=== PATIENT | female | born 1950 | race Caucasian/White ===

== ENCOUNTER 2017-03-04 07:30 | Inpatient (IN) | payer BC, MEDICARE ==
--- NOTE | 2017-02-24 15:38 | HP ---
HISTORY AND PHYSICAL: DATE OF ADMISSION/SURGERY: 03/04/17 DATE OF OFFICE VISIT: 02/19/17 SURGEON: Dr. Paola Ni. PROCEDURE: Right total knee arthroplasty. CHIEF COMPLAINT: Right knee pain. HISTORY OF PRESENT ILLNESS: Ms. Alcala is a 66-year-old female with complaints of right knee pain secondary to advanced osteoarthritis. She has failed conservative management and has elected to proceed with a right total knee arthroplasty, which is scheduled for 03/04/[address] Ni. PAST MEDICAL HISTORY: Multiple sclerosis, Frank disease, high cholesterol, melanoma. PAST SURGICAL HISTORY: Corneal transplant, cataract removal, melanoma removal, bilateral elbow surgery, open left shoulder surgery, and ORIF of the right foot. CURRENT MEDICATIONS: 1. Baby aspirin. 2. Vitamin D. 3. Metamucil. 4. Tramadol. 5. Glatopa. 6. Voltaren Gel. 7. Dronabinol. 8. Lotemax. 9. Advil. 10. Iron. 11. Turmeric. ALLERGIES: To PENICILLIN, SULFA, BETADINE, LEVAQUIN. FAMILY HISTORY: Hypertension, celiac disease. SOCIAL HISTORY: She is a 66-year-old female. She lives with her spouse. She is a part-time employee at [employer]. She does not smoke or use drugs. Uses occasional alcohol. REVIEW OF SYSTEMS: Reviewed the complete 14-point review of systems with the patient, it was all negative. PHYSICAL EXAMINATION GENERAL: She is well-developed, well-nourished. She is in no acute distress. VITAL SIGNS: She stands 5 feet 2 inches tall, weighs 156 pounds, her blood pressure 122/84, heart rate 56. HEENT: Normocephalic, atraumatic. NECK: Supple. No palpable lymph nodes. Trachea is midline. PULMONARY: The lungs are clear to auscultation bilaterally. CARDIO: Regular rate and rhythm. ABDOMEN: Soft and nontender, nondistended. MUSCULOSKELETAL: Right lower extremity, the skin is intact. She has some tenderness over the medial and lateral joint line. There is moderate joint effusion. 2+ dorsalis pedis pulses. Her lower extremity muscle group strengths are intact at 5/5. She has intact sensation. She walks with an antalgic-type gait favoring her right leg. ASSESSMENT AND PLAN: Ms. Alcala is a 66-year-old female with complaints of right knee pain secondary to osteoarthritis. She has failed conservative management and has elected to proceed with a right total knee arthroplasty which is scheduled for 03/04/[address] Ni discussed the risks and the benefits of the surgery at today's visit and all of her questions were answered. Colace, Coumadin, and Percocet were sent to her pharmacy today for postoperative pain control and DVT prophylaxis. She will see Dr. Ni back 10 to 14 days after the surgery. VENKATA NEWBERRY [id number]/[facility] #: [id number] MTDBairon
[~2017-03-04 07:30] MED LIST: Buffered Lidocaine 1% SYRIN* 3 ML/SYR SYRINGE INTRADERM ONE; Famotidine IV* 10 MG/ML 2 ML (20 mg) IV ONE; Gabapentin CAP(*) 300 MG PO ONE
[2017-03-04] MEDS ORDERED: Famotidine IV* 10 MG/ML 2 ML (20 mg) ONE (08:57)
[2017-03-04] MEDS ORDERED: Gabapentin CAP(*) 300 MG ONE (08:58)
[2017-03-04] MEDS ORDERED: Clindamycin 900 MG IVPREMIX(* 900 MG/50 ML SDV IV ONE (08:58)
[2017-03-04] MEDS ORDERED: Bupivacaine 0.5% W/EPI SDV* 30 ML VIAL ONE (09:22)
[2017-03-04] MEDS ORDERED: fentaNYL* 50 MCG/ML 2 ML VIAL (100 MCG VIAL) ONE ×2 (10:14→11:49)
[2017-03-04] MEDS ORDERED: Midazolam* 1 MG/ML 5 ML VIAL (5 MG) ONE (10:14)
[2017-03-04] MEDS ORDERED: Propofol* 10 MG/ML 20 ML BTL IV PUSH ONE (10:15)
[2017-03-04] MEDS ORDERED: Ketorolac INJ* 30 MG/ML 1 ML VIAL ONE (10:15)
[2017-03-04] MEDS ORDERED: Dexamethasone IV* 4 MG/ML 1 ML (4 MG) ONE (10:15)
[2017-03-04] MEDS ORDERED: Ondansetron INJ* 2 MG/ML VIAL ONE (10:15)
[2017-03-04] MEDS ORDERED: Lidocaine 2% PF * 5 ML VIAL ONE (10:15)
[2017-03-04] MEDS ORDERED: ROPIVACAINE 5 MG/ML 30 ML BTL (0.5%) ONE (10:20)
[2017-03-04] MEDS ORDERED: DiMENhydriNATE IV* 50 MG/ML VIAL IV PUSH PRN (11:24)
[2017-03-04] MEDS ORDERED: HYDROmorphone* 1 MG/ML 1 ML SYR IV PRN (11:24)
[2017-03-04] MEDS ORDERED: Acetaminophen IV 1GM/100ML * 100 ML IVPB ONE (11:24)
[2017-03-04] MEDS ORDERED: Gabapentin CAP(*) 100 MG PO ONE (11:26)
[2017-03-04] MEDS ORDERED: Midazolam* 1 MG/ML 2 ML VIAL (2 MG) ONE (11:35)
[2017-03-04] MEDS ORDERED: KETAMINE HCL* 50 MG/ML 10 ML VIAL ONE (11:36)
[2017-03-04] MEDS ORDERED: HYDROmorphone* 1 MG/ML 1 ML SYR ONE ×2 (13:12→14:29)
[2017-03-04] MEDS ORDERED: Gabapentin CAP(*) 100 MG ONE (13:54)
[2017-03-04] MEDS ORDERED: Acetaminophen IV 1GM/100ML * 100 ML ONE (13:55)
[2017-03-04] MEDS ORDERED: Ondansetron TAB* 4 MG PO PRN (14:03)
[2017-03-04] MEDS ORDERED: oxyCODONE/Acetamin 5/325 MG* TAB PO PRN (14:03)
[2017-03-04] MEDS ORDERED: Acetaminophen TAB* 325 MG PO PRN (14:03)
[2017-03-04] MEDS ORDERED: Bisacodyl SUPP* 10 MG SUPP PR PRN (14:03)
[2017-03-04] MEDS ORDERED: LACTULOSE* 30 ML UDC PO PRN (14:03)
[2017-03-04] MEDS ORDERED: Polyethylene Glycol 3350* 17 GM PACKET PO PRN (14:03)
[2017-03-04] MEDS ORDERED: diPHENhydraMINE IV* 50 MG/ML 1 ml VIAL (BENADRYL) IV PRN (14:03)
[2017-03-04] MEDS ORDERED: oxyCODONE TAB* 5 MG TAB ONE (14:32)
[2017-03-04] MEDS: oxyCODONE TAB* 5 MG TAB PO PRN ×2 (14:34→14:35)
--- NOTE | 2017-03-04 14:55 | RAD ---
Indication: Right total knee replacement. 2 views of the right knee demonstrates right knee replacement in satisfactory position. No loosening is noted. IMPRESSION: Right knee replacement in satisfactory position.
[2017-03-04] MEDS ORDERED: Warfarin TAB(*) 6 MG PO ONE (17:00)
[2017-03-04] MEDS ORDERED: Clindamycin 600 MG IVPREMIX(* 600 MG/50 ML SDV IV SCH (17:00)
[2017-03-04] MEDS: Omeprazole CAP* 20 MG PO SCH (17:17)
[2017-03-04] MEDS: Morphine INJ* 2 MG/ML 1 ML SYRINGE IV PRN ×3 (17:17→23:49)
[2017-03-04] MEDS: oxyCODONE/Acetamin 5/325 MG* TAB PO PRN ×2 (18:37→21:51)
[2017-03-04] MEDS: Clindamycin 600 MG IVPREMIX(* 600 MG/50 ML SDV IV SCH (20:16)
[2017-03-04] MEDS: Dronabinol CAP* 2.5 MG PO PRN (21:50)
[2017-03-04] MEDS: Docusate CAP* 100 MG PO SCH (21:51)
[2017-03-04] MEDS: Magnesium Hydroxide LIQ* 30 ML UDC PO PRN (21:51)
[2017-03-04] MEDS: GLATIRAMER 20 MG/ML SUBCUT SCH (21:54)
--- NOTE | 2017-03-05 02:46 | OP ---
DATE OF OPERATION: 03/04/17 - ROOM #341 DATE OF : 52 SURGEON: Paola Ni MD HELP DESK REP: VENKATA Bowens. This senior sales assistant was crucial and used throughout the procedure for prepping the leg, manipulation of the leg, retraction, and wound closure. ANESTHESIOLOGIST: Dr. Huffman. ANESTHESIA: General with adductor nerve block. PRE-OP DIAGNOSIS: Severe degenerative osteoarthritis of the right knee joint. POST-OP DIAGNOSIS: Severe degenerative osteoarthritis of the right knee joint. OPERATIVE PROCEDURE: Right total knee arthroplasty. COMPLICATIONS: None. EBL: 200 cc. TOURNIQUET TIME: 42 minutes. SPECIMEN: Bone and cartilage from the right knee joint sent to pathology. HARDWARE: This is a cemented [employer] total knee hardware. Two packages of Simplex bone cement were used. For the femur, a size 5 right narrow Oxinium femoral component, which was posterior stabilized. For the tibia , size 3 tibial base plate. For the insert, a 9 mm posterior stabilized articular insert size 3-4. For the patella, a 29 mm 7.5 thickness 3-peg all- poly patella. BRIEF HISTORY/INDICATIONS: Ms. Alcala is a 66-year-old female with years of increasingly severe right knee pain. She failed conservative treatment with The anti-inflammatories, pain medications, intraarticular injections and physical therapy. She elected to undergo right total knee arthroplasty due to continued pain and decreased quality of life. Informed consent was obtained from the patient. She understood the risks of the surgery included, but were not limited to bleeding, infection, damage to nearby structures, continued pain , need for further surgery, intraoperative fracture, nerve palsy, hardware failure or loosening, knee stiffness, loss of motion, stroke, heart attack, blood clot and . She wished to proceed. INTRAOPERATIVE FINDINGS: Intraoperatively, the patient was noted to have complete loss of cartilage in the medial and patellofemoral compartments. She also had some lateral femoral condylar hypoplasia. DESCRIPTION OF PROCEDURE: Ms. Alcala was identified in the preanesthesia unit. Her right lower extremity was marked as the correct operative side. Informed consent was signed and placed in the chart. The patient was taken to the operating room and placed under general anesthesia with an adductor nerve block. A Briggs catheter was placed. A thigh high tourniquet was placed. Right lower extremity was prepped and draped in the usual sterile fashion. Preop time-out was made to currently identify the patient's side and site. Appropriate perioperative antibiotics were given within 1 hour of incision. Tourniquet was inflated until tourniquet time for this procedure was 42 minutes. A 12 cm midline incision was made with a 10 blade. This was carried down to the extensor mechanism. A new 10 blade was used to make a standard medial peripatellar arthrotomy. The patella was subluxed laterally. Electrocautery was used to subperiosteally elevate soft tissue off the superomedial tibia to the mid sagittal plane. The knee was flexed up. The anterior horn of the lateral meniscus and ACL were sharply released. The drill was used to enter the distal femur. Intra-medullary distal femoral cutting guide was pinned into proper position. Oscillating saw was used to make a distal femoral cut. Next, an external guide was pinned on the distal femur. The distal femur was size to a size 5. A size 5 multi-cutting jig was pinned on the distal femur. Oscillating saw was used to make the appropriate 4 chamfer cuts. Next, the PCL was completely released. The tibia was subluxed anteriorly. Extramedullary tibial cutting guide was pinned on the proximal tibia. Oscillating saw was used to make the proximal tibial cut perpendicular to the mechanical axis of the tibia. The bone was carefully removed. The knee was brought into full extension. The spacer block had good fit. Medial and lateral ligaments were well balanced. Flexion and extension gaps were well balanced. The knee was flexed up. Lamina technical instructor course developer was placed both medially and laterally. Any remaining meniscus was carefully removed with electrocautery. Any posterior osteophytes were carefully removed. Tibial tray and drop nnamdi were placed to once again confirm satisfactory proximal tibial cut. This was confirmed. A size 5 narrow right femoral component trial was impacted onto the distal femur. This had good fit. The box for the posterior stabilized implant was prepared using a reamer and box cut osteotome. Size 3 tibial trial with a 9 mm insert trial was placed. The knee was taken through a range of motion. The knee had full extension to a 130 degrees of flexion with good patellofemoral tracking. The patella was everted. 7 mm of patellar bone and cartilage was carefully removed from the patella. Patella was sized to a size 29. The 3 peg holes were drilled through the size 29 guide. A 29 trial patella, which was 7.5 thickness, was chosen. This was placed and the knee was taken through a range of motion. There was good patellofemoral tracking. All trials were carefully removed. The tibia was subluxed anteriorly. Tibia was sized to a size 3 and prepared with a size 3 keel punch. All bony cut surfaces were copiously irrigated with sterile saline and dried. Final implants were cemented into place starting with the tibia followed by femur and last the patella. A 9 mm insert trial was placed while the knee was brought out into full extension. Tourniquet was turned down at 42 minutes. The knee was copiously irrigated with sterile saline. Once the cement was fully cured, the insert trial was removed. Any excess cement was carefully removed from around the implants. The electrocautery was used to obtain meticulous hemostasis. Final implants chosen was a 9 mm posterior stabilized articular insert. This was locked into position on the tibial tray without difficulty. Stability of the insert was checked and rechecked and noted to be stable. The knee was copiously irrigated with sterile saline once again. The extensor mechanism was closed over a medium Hemovac drain using interrupted #1 Vicryls. The rest of the incision was closed in a layered fashion using 0 and 2-0 Vicryls. Skin was closed using running 3-0 nylon suture. The incision was covered with Xeroform, 4x4s and Webril. Sterile Darian wrap and cold pack were placed over this. The patient's anesthesia was reversed without difficulty. She was taken to the PACU in stable condition. Intended weightbearing will be weightbearing as tolerated. Intended DVT prophylaxis will be Coumadin with a Lovenox bridge. [id number]/[facility] #: [id number] [facility]ENTERBairon
[2017-03-05] MEDS: oxyCODONE/Acetamin 5/325 MG* TAB PO PRN ×6 (03:39→21:24)
[2017-03-05] MEDS: Morphine INJ* 2 MG/ML 1 ML SYRINGE IV PRN ×4 (03:41→16:17)
[2017-03-05] MEDS: Clindamycin 600 MG IVPREMIX(* 600 MG/50 ML SDV IV SCH ×3 (03:47→19:59)
[2017-03-05 06:59] LABS: Hematocrit 32 % (35-47); Hemoglobin 10.8 g/dl (12.0-16.0)
[2017-03-05 07:14] LABS: BUN/Creatinine Ratio 14.9 (8-20); Calcium 8.3 mg/dL (8.6-10.3); EGFR African American 113.6 (>60); EGFR Non-African American 88.3 (>60)
[2017-03-05] MEDS: Docusate CAP* 100 MG PO SCH ×2 (07:59→21:25)
[2017-03-05] MEDS: LOTEPREDNOL 0.5% BOTH EYES SCH (08:00)
[2017-03-05] MEDS: Dronabinol CAP* 2.5 MG PO PRN (11:31)
[2017-03-05] MEDS ORDERED: Enoxaparin(*) 30 MG/0.3 ML SYR SUBCUT SCH (12:00)
--- NOTE | 2017-03-05 15:29 | PN ---
Progress Note - Progress Note SOAP: Subjective: Pt is doing well. She is having some difficulty with pain control, needing frequent IV morphine. Otherwise doing well. Denies CP, SOB, calf pain, N/T or F /C. VSS Objective: PE: 66 y/o F NAD sitting in bed comfortably RLE- dressing c/d/i. +PF/DF ankle, calf soft nt, NVI Vital Signs Temp Pulse Resp BP Pulse Ox 97.9 F 46 18 110/62 100 03/05/17 12:14 03/05/17 12:14 03/05/17 14:53 03/05/17 12:14 03/05/17 12:14 Laboratory Results - last 24 hr 03/05/17 03/05/17 03/05/17 06:04 06:04 06:04 Hgb 10.8 L Hct 32 L INR (Anticoag Therapy) 0.95 Sodium 136 Potassium 4.0 Chloride 103 Carbon Dioxide 29 Anion Gap 4 BUN 10 Creatinine 0.67 Est GFR ( Amer) 113.6 Est GFR (Non-Af Amer) 88.3 BUN/Creatinine Ratio 14.9 Glucose 106 H Calcium 8.3 L Assessment: POD #1 S/P right TKA Plan: WBAT RLE- cont PT/OT coumadin 8 mg tonight Oxycontin 10 mg bid to wean off of IV morphine Plan to DC home with VNS in 1-2 days
[2017-03-05] MEDS ORDERED: Warfarin TAB(*) 4 MG PO SCH (17:00)
[2017-03-05] MEDS: Omeprazole CAP* 20 MG PO SCH (17:28)
[2017-03-05] MEDS: oxyCODONE SR TAB(*) 10 MG TAB.SR PO SCH (21:25)
[2017-03-05] MEDS: GLATIRAMER 20 MG/ML SUBCUT SCH (21:26)
[2017-03-06] MEDS: oxyCODONE TAB* 5 MG TAB PO PRN ×3 (00:29→23:21)
[2017-03-06] MEDS: Morphine INJ* 2 MG/ML 1 ML SYRINGE IV PRN (03:59)
[2017-03-06] MEDS: oxyCODONE/Acetamin 5/325 MG* TAB PO PRN ×2 (04:01→08:21)
[2017-03-06 06:20] LABS: Hematocrit 32 % (35-47); Hemoglobin 10.7 g/dl (12.0-16.0)
[2017-03-06] MEDS: Magnesium Hydroxide LIQ* 30 ML UDC PO PRN ×2 (08:19→20:13)
[2017-03-06] MEDS: oxyCODONE SR TAB(*) 10 MG TAB.SR PO SCH (08:19)
[2017-03-06] MEDS: Docusate CAP* 100 MG PO SCH ×2 (08:19→20:13)
[2017-03-06] MEDS: LOTEPREDNOL 0.5% BOTH EYES SCH (08:24)
[2017-03-06] MEDS ORDERED: Ondansetron INJ* 2 MG/ML VIAL ONE (09:29)
[2017-03-06] MEDS ORDERED: Ondansetron INJ* 2 MG/ML VIAL IV PRN (09:34)
--- NOTE | 2017-03-06 09:46 | PN ---
Progress Note - Progress Note SOAP: Subjective: Pt continues to have issues with pain control and needed IV morphine overnight. She also complains of dizziness and nausea. She denies CP, SOB, N/T or F/C. BP and H&H stable Objective: PE: 66 y/o F NAD, A&O x3 RLE- dressing changed, inc c/d/i, calf soft nontender, + PF/DF at ankle, NVI Vital Signs Temp Pulse Resp BP Pulse Ox 98.0 F 56 16 122/55 96 03/06/17 07:26 03/06/17 07:26 03/06/17 08:21 03/06/17 07:26 03/06/17 07:26 Laboratory Results - last 24 hr 03/06/17 03/06/17 05:56 05:56 Hgb 10.7 L Hct 32 L INR (Anticoag Therapy) 1.70 H Assessment: POD #2 S/P right TKA Plan: WBAT RLE- cont PT/OT coumadin 8 mg tonight Increase Oxycontin 20 mg bid to wean off IV morphine IV zofran prn nausea Plan to DC home tomorrow with VNS
[2017-03-06] MEDS ORDERED: oxyCODONE SR TAB(*) 10 MG TAB.SR PO SCH (09:52)
[2017-03-06] MEDS: Dronabinol CAP* 2.5 MG PO PRN ×2 (13:08→20:13)
[2017-03-06] MEDS: Omeprazole CAP* 20 MG PO SCH (16:54)
[2017-03-06] MEDS ORDERED: Warfarin TAB(*) 4 MG PO ONE (17:00)
[2017-03-06] MEDS: GLATIRAMER 20 MG/ML SUBCUT SCH (20:14)
[2017-03-06] MEDS ORDERED: diPHENhydraMINE PO* 25 MG PO PRN (20:47)
[2017-03-06] MEDS: oxyCODONE SR TAB(*) 20 MG TAB.SR PO SCH (22:09)
[2017-03-07] MEDS: oxyCODONE TAB* 5 MG TAB PO PRN (03:55)
[2017-03-07 05:33] LABS: Hematocrit 33 % (35-47)
[2017-03-07 08:06] VITALS: BP 123/61
--- NOTE | 2017-03-07 10:03 | PN ---
Progress Note - Progress Note SOAP: Subjective: Pt is doing well. She had difficulty with pain control overnight. Her pain is better controlled with oxycontin. She denies CP, SOB, N/T, lightheadedness or fever/chills. VSS overnight Objective: PE- 66 y/o F NAD, A&O x 3 RLE- dressing changed, inc c/d/i no signs of infection, +DF/PF at ankle, calf soft nontender, NVI Vital Signs Temp Pulse Resp BP Pulse Ox 97.9 F 67 16 123/61 96 03/07/17 07:24 03/07/17 07:24 03/07/17 07:24 03/07/17 07:24 03/07/17 07:24 Laboratory Results - last 24 hr 03/07/17 03/07/17 05:17 05:18 Hgb 11.0 L Hct 33 L INR (Anticoag Therapy) 2.90 H Assessment: POD #3 S/P right TKA Plan: Home with VNS today WBAT RLE- cont PT cont coumadin and colace Oxycontin 20 mg bid and percocet for pain F/U 10-14 days post op
[2017-03-07] MEDS: Docusate CAP* 100 MG PO SCH (10:16)
[2017-03-07] MEDS: oxyCODONE/Acetamin 5/325 MG* TAB PO PRN (10:16)
[2017-03-07] MEDS: oxyCODONE SR TAB(*) 20 MG TAB.SR PO SCH (10:16)
[2017-03-07] MEDS: LOTEPREDNOL 0.5% BOTH EYES SCH (10:17)
--- NOTE | 2017-03-07 16:56 | DS ---
DISCHARGE SUMMARY: DATE OF ADMISSION: 03/04/17 DATE OF DISCHARGE: 03/07/17 PROVIDER: Dr. Paola Ni. (DICTATED BY VENKATA MAO) ADMISSION DIAGNOSIS: Status post right total knee arthroplasty due to severe right knee osteoarthritis. SECONDARY DIAGNOSES: 1. Multiple sclerosis. 2. Frank disease. 3. High cholesterol. 4. Melanoma. CONSULTATIONS: Physical Therapy, Occupational Therapy. HISTORY OF PRESENT ILLNESS: Ms. Alcala is a 66-year-old female, who presents to the clinic with complaints of right knee pain due to severe osteoarthritis. She failed conservative measures and therefore elected to proceed with a right total knee arthroplasty with Dr. Ni on 03/04/17. HOSPITAL COURSE: Ms. Alcala was admitted to [facility] on 03/04/17. She underwent a right total knee arthroplasty. Postoperatively, she recovered on the short-stay surgical unit. On postop day 1, Briggs was removed. She was able to urinate on her own. Her diet was advanced to regular diet without difficulty. Her pain was controlled with oral and IV pain medications and her home medications were restarted. Labs and vitals remained stable. She is able to weight bear as tolerated on the right lower extremity. She advanced appropriately with physical therapy and occupational therapy. DVT prophylaxis was managed with Lovenox and Coumadin until she reached a therapeutic INR. By postop day 2, she was transitioned to only oral pain medication. By postop day 3, she was orthopedically and medically stable for discharge to home with VNS services. PHYSICAL EXAMINATION: General: A 66-year-old, well-developed, well-nourished female, in no acute distress. Alert and oriented x3. Right lower extremity dressing was changed. Her incision is clean, dry, and intact with no signs of infection. Able to dorsiflex and plantarflex at the ankle. Calf is soft and nontender. Neurovascularly intact. DISCHARGE CONDITION: Stable. DISCHARGE MEDICATIONS: Home medications continued on discharge to include: 1. Ibuprofen 400 mg by mouth every 6 hours as needed. The patient understands not to take this while on Coumadin. 2. Copaxone 20 mg subcu at bedtime. 3. Aspirin 81 mg by mouth at night. The patient understands not to take this with Coumadin. 4. Vitamin C 1 tab by mouth every morning. 5. Prevacid 1 tab by mouth every night. 6. Turmeric 1 cap p.o. daily. 7. Metamucil 0.52 g 6 caps p.o. twice a day. 8. Voltaren 1% gel 1 application tube topical, see instructions as needed. 9. Lotemax 0.5% ophthalmic suspension 1 drop both eyes every morning. 10. Marinol 2.5 mg 1 cap by mouth 3 times a day as needed. 11. Vitamin D3 5000 units 1 cap by mouth every morning. New medications on discharge to include: 1. Docusate sodium 100 mg 2 to 3 times a day as needed for constipation. 2. Warfarin 2 mg by mouth as instructed by physician. 3. Percocet 5/325 one to two tabs every 4 to 6 hours as needed for pain. 4. OxyContin 20 mg by mouth twice a day. DISCHARGE INSTRUCTIONS: The patient may shower on postop day 4. VNS nurses may change the dressing with gauze and an Darian wrap. Sutures will be removed in the postop visit. The patient should not submerge the wound in water such as pools or bath. She is weightbearing as tolerated on the right lower extremity. She should continue with physical therapy. She should continue Percocet and OxyContin twice a day for the pain. She should use [id number] Benadryl as needed for itching and continue Colace for constipation. She should continue Coumadin for DVT prophylaxis x1 month. She will hold on 03/07/17. Because her INR was 2.9 on discharge, redraw Wednesday. Should not take aspirin, ibuprofen, or naproxen while on the Coumadin. She should go to the ER if she developed chest pain, shortness of breath, calf pain, or fever greater than 101.5. She should call the office with questions or concerns. She will follow up with Dr. Ni in 10 to 14 days. VENKATA MAO [id number]/[facility] #: [id number] MTDD
== END 2017-03-07 10:50 | disposition home health service (06) | DRG 302 ==
LOC: AA 08:38 → SSU 14:04
PROVIDERS: ADMIT Orthopaedic Surgery Adult Reconstructive Orthopaedic Surgery; ATTEND Orthopaedic Surgery Adult Reconstructive Orthopaedic Surgery
PROC: 0SRC0J9 Replacement of Right Knee Joint with Synthetic Substitute, Cemented, Open Approach (ICD-10-PCS; principal; 2017-03-04 11:00)
DX: M17.11 Unilateral primary osteoarthritis, right knee (principal); D68.61 Antiphospholipid syndrome; G35 Multiple sclerosis; K21.9 Gastro-esophageal reflux disease without esophagitis; K58.9 Irritable bowel syndrome, unspecified; J30.2 Other seasonal allergic rhinitis; E55.9 Vitamin D deficiency, unspecified; E78.00 Pure hypercholesterolemia, unspecified; Z98.49 Cataract extraction status, unspecified eye; Z88.1 Allergy status to other antibiotic agents; Z82.49 Family history of ischemic heart disease and other diseases of the circulatory system; Z88.0 Allergy status to penicillin; Z88.2 Allergy status to sulfonamides; Z88.8 Allergy status to other drugs, medicaments and biological substances; Q72.891 Other reduction defects of right lower limb; Z85.820 Personal history of malignant melanoma of skin; Z83.79 Family history of other diseases of the digestive system; Z79.82 Long term (current) use of aspirin; Z79.01 Long term (current) use of anticoagulants; Z82.61 Family history of arthritis; Z81.8 Family history of other mental and behavioral disorders; L40.9 Psoriasis, unspecified; M79.7 Fibromyalgia; Z94.7 Corneal transplant status
CPT/HCPCS: 36415; 80048; 85014; 85018; 85610; 94760; A9270-GY; C1776; J1100; J1170; J1650; J1885; J2250; J2270; J2405; J2704; J2795; J3010